=== PATIENT | female | born 1990 | race Caucasian/White ===

== ENCOUNTER 2023-12-16 09:27 | Outpatient (AMB) | payer MEDICARE, MEDICAID, SELFPAY ==
--- NOTE | 2023-12-16 09:28 | A.OFFVIS_ITS ---
Intake Vital Signs 12/16/23 09:34 Height 5 ft 2 in Weight 218 lb 4.122 oz BMI 39.9 BP 127/82 Blood Pressure Location Lt brachial Position Sitting Pulse 100 Intake Visit Reasons: GERD, DIARRHEA, EXTREME NAUSEA Intake Note: Alejandrina presents in the office as a new patient for GERD, Diarrhea, And Nausea. CC: She states that she had SIBO and since the AX that she states that she has gotten better. She now has constipation because she is on the fentinol is adding to that but her mast cell dr wanted a GI specialist on the team. [facility]. Her PCP is Zena Boyd. Truck Car And Bus Cleaner Required: Yes Truck Car And Bus Cleaner Name: [id number] Allergies almond Allergy (Mild, Verified 12/16/23 09:36) Unknown avocado Allergy (Mild, Verified 12/16/23 09:36) Unknown peanut Allergy (Mild, Verified 12/16/23 09:36) Unknown tomato Allergy (Mild, Verified 12/16/23 09:36) Unknown avoid: potato, corn, pepper, beans Allergy (Mild, Uncoded 12/16/23 09:36) Unknown cassava Allergy (Mild, Uncoded 12/16/23 09:36) Unknown zucchini Allergy (Mild, Uncoded 12/16/23 09:36) Unknown HPI GERD, DIARRHEA, EXTREME NAUSEA HPI Details 33 yr old f here for assessment, she has chronic constipation, attributed to fentanyl patch--on for 5 months, she has tried OTC meds with variable results she has chrnic nausea, on zofran for years denies dysphagia she can have hard time speaking --dysphonia she denies heartburn and reflux she is on claritin and cromolyn right now, had skin test but developed anaphylaxis last EGD and colo [address] [facility] --normal per her report said she has been tested for POTS in past and told neg PMH: DEISY, hashimotos, Dileep Danlos, asthma, chronic pain, migraines, PSH: double mastectomy (BRCA pos), neck fusion, SH: non smoker, no alcohol, no THC use, disabled due to hearing FH: Fh of breast cancer, second cousin CRC, mum with colon polyps Constitutional : No Weight loss, No Fever, No Chills ENT/Mouth : No sore throat, No Rhinorrhea Eyes: No Swelling, No Redness Cardiovascular : No Chest Pain, No SOB, No Edema Respiratory : No Cough, No Sputum, No Wheezing Gastrointestinal : see HPI Genitourinary : NO Dysuria, No Urinary Frequency, No Hematuria, No Urgency Musculoskeletal : No joint pain, No Myalgias, No Joint Swelling Skin : No Skin Lesions, No rash Neuro : No Weakness, No Numbness, No Dizziness, No Headache Psych : No Anxiety/Panic, No Depression Heme/Lymph: No Bruising, No Lymphadenopathy Endocrine : No Polyuria, No Polydipsia All other systems reviewed and are negative. EXAM: GENERAL: The patient is well developed and nontoxic. VITAL SIGNS:see workflow HEENT: Nonicteric sclerae, PERRLA, EOMI. Oropharynx clear. Moist mucous membranes. Conjunctivae appear well perfused. No thyroid mass. CHEST: Chest wall is nontender. HEART: Regular rate and rhythm without murmurs. LUNGS: Clear to auscultation bilaterally. ABDOMEN: Soft, positive bowel sounds, nontender, no organomegaly.no flank tenderness GENITAL:not done RECTAL: not done SKIN: No rash, no excessive bruising, petechiae, or purpura. NEUROLOGIC: Cranial nerves II-XII intact without motor/sensory deficit except deaf A/P: 1/ DEISY, chronic nausea could be 2/2 jimmy roparesis or opiate use, dysmotility, mast cell d/o less likely mastocytosis Plan: 1/ EGD, colo with bx for mast cells, als o will need pre op anesthesia and may need benadryl etc before hand--she has a lot of other apptms coming up and wants to wait to schedule this, will send suprep 2/ trial of movantik and see if helps [facility] Surgical History (Updated 12/16/23 @ 09:43 by ANAT Swan) Hx of neck surgery Hx of mastectomy Hx of tonsillectomy Hx of colonoscopy History of esophagogastroduodenoscopy (EGD) Family History (Updated 12/16/23 @ 09:44 by ANAT Swan) Family/Other Colon cancer Physical Exam Vital Signs: Last Vital Signs Pulse 100 12/16/23 09:34 BP 127/82 12/16/23 09:34 BMI result Body Mass Index 39.9 Assessment & Plan Assessment & Plan (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 - Mast cell activation, unspecified Plan: A/P: 1/ DEISY, chronic nausea could be 2/2 gastroparesis or opiate use, dysmotility, mast cell d/o less likely mastocytosis Plan: 1/ EGD, colo with bx for mast cells, also will need pre op anesthesia and may need benadryl etc before hand 2/ trial of movantik and see if helps (2) BRCA gene mutation positive: Code(s): Z15.01 - Genetic susceptibility to malignant neoplasm of breast; Z15.09 - Genetic susceptibility to other malignant neoplasm Plan: A/P: 1/ DEISY, chronic nausea could be 2/2 gastroparesis or opiate use, dysmotility, mast cell d/o less likely mastocytosis Plan: 1/ EGD, colo with bx for mast cells, also will need pre op anesthesia and may need benadryl etc before hand 2/ trial of movantik and see if helps Medications: New sodium,potassium,mag sulfates 17.5-3.13-1.6 gram (Suprep Bowel Prep Kit) DILUTE; drink 1/2 at 6-8 pm and half at 11 PM- 1AM 354 mL 0RF naloxegol (Movantik) must be taken on empty stomach; no food 1 hr after or 2-3 hrs before dose 12.5 mg PO QAM 90 tabs 0RF Coding Level of Care Code New Pt Level 4 (51727) Diagnoses Mast cell activation syndrome D89.40 BRCA gene mutation positive Z15.; Z.
[2023-12-16 09:34] VITALS: BP 127/82; PULSE 100; BMI 39.9
== END 2023-12-16 10:59 | disposition home or self-care (01) ==
PROVIDERS: PCP Family Medicine; Visit Provider Internal Medicine Gastroenterology
DX: D89.40 Mast cell activation, unspecified (principal); Z15.01 Genetic susceptibility to malignant neoplasm of breast; Z15.09 Genetic susceptibility to other malignant neoplasm
CPT/HCPCS: 99204

== ENCOUNTER → 2023-12-16 09:27 | Outpatient (BNVA) | payer MEDICARE, MEDICAID, SELFPAY | PROVIDERS: PCP Nurse Practitioner Family; Visit Provider Internal Medicine Gastroenterology | DX: D89.40 Mast cell activation, unspecified (principal); Z15.01 Genetic susceptibility to malignant neoplasm of breast; Z15.09 Genetic susceptibility to other malignant neoplasm | CPT/HCPCS: 99202 ==

== ENCOUNTER 2024-08-10 11:05 | Outpatient (REF) | payer MEDICARE, MEDICAID, SELFPAY ==
--- NOTE | ~2024-08-10 | XR_ITS ---
EXAMINATION: XR ABDOMEN KUB CLINICAL INDICATION: Constipation. COMPARISON: None available. TECHNIQUE: 2 views of the abdomen. FINDINGS: The bowel gas pattern is normal with no evidence of ileus or obstruction. Moderate stool burden is seen throughout the colon and in the rectum. No unusual soft tissue calcifications are noted. Regional osseous structures are intact. XR/XR KUB IMPRESSION: Moderate stool burden. Electronically signed by: Pravin Deutsch MD 08/10/2024 03:15 PM EDT
[2024-08-10 12:44] LABS: MANUAL DIFF FLAG NO
[2024-08-10 12:48] LABS: Basophils Absolute Auto 0.1 X10*3/uL (0.0-0.2); Basophils Percent Auto 0.6 % (0-2); Eosinophils Absolute Auto 0.1 X10*3/uL (0.0-0.4); Eosinophils Percent Auto 0.4 % (0-4); Hematocrit 44.3 % (37.0-47.0); Hemoglobin 15.3 g/dl (12.0-16.0); Imm Gran Abs Auto 0.16 X10*3/uL (0.00-0.03); Lymphocytes Absolute Auto 2.6 X10*3/uL (1.2-4.9); Lymphocytes Percent Auto 16.4 % (20-40); Mean Corpuscular HGB Conc 34.5 g/dl (31.0-35.0); Mean Corpuscular Hemoglobin 29.9 pg (27.0-33.0); Mean Corpuscular Volume 86.5 fL (80.0-98.0); Mean Platelet Volume 10.3 fL (9.4-12.3); Monocytes Absolute Auto 1.2 X10*3/uL (0.1-1.2); Monocytes Percent Auto 7.7 % (2-11); Neutrophils Absolute Auto 11.7 x10*3/uL (2.0-8.3); Neutrophils Percent Auto 73.9 % (45-73); Platelet Count 270 X10*3/uL (160-400); Red Blood Count 5.12 X10*6/uL (4.20-5.50); Red Cell Distribution Width 13.3 % (11.0-16.0); White Blood Count 15.9 X10*3/uL (4.8-10.8)
[2024-08-10 13:12] LABS: Alanine Aminotransferase 15 U/L (0-31); Albumin Level 4.2 g/dL (3.5-5.0); Alkaline Phosphatase 83 U/L (39-117); Anion Gap 12 (12-20); Aspartate Amino Transferase 9 U/L (5-31); Bilirubin Total 0.3 mg/dL (0.0-1.0); Blood Urea Nitrogen 8 mg/dL (9-16); C Reactive Protein 0.16 mg/dL (< or = 0.50); Calcium 9.5 mg/dL (8.4-10.2); Carbon Dioxide 22 mmol/L (22-29); Chloride 110 mmol/L (96-108); Estimated Glomerular Filt Rate > 60; Glucose Random 86 mg/dL (60-115); Magnesium 2.1 mg/dL (1.6-2.6); Potassium 3.5 mmol/L (3.3-5.1); Sodium 140 mmol/L (135-145); Total Protein 7.4 g/dL (6.5-8.0)
[2024-08-10 13:26] LABS: Ferritin 70 ng/mL (10-122); Vitamin D 25-OH Total 24.4 ng/mL (>30)
[2024-08-11 10:44] LABS: IgA 281 mg/dL (47-310); IgG 1148 mg/dL (600-1640); IgM 115 mg/dL (50-300)
[2024-08-11 13:53] LABS: Immunoglobulin E 24 kU/L (<OR=114)
[2024-08-13 05:45] LABS: Zinc 85 mcg/dL (60-130)
[2024-08-13 22:38] LABS: Aldolase 5.4 U/L (<=8.1); Vitamin A 107 mcg/dL (38-98)
[2024-08-14 21:33] LABS: Vitamin K1 765 pg/mL (130-1500)
[2024-08-14 21:47] LABS: Alpha-Tocopherol 8.5 mg/L (5.7-19.9); Beta-Gamma Tocopherol <1.0 mg/L (<=4.3)
[2024-08-15 16:23] LABS: Vitamin C 0.5 mg/dL (0.3-2.7)
[2024-08-17 08:13] LABS: Vitamin B5 (Pantothenic Acid) <=40 ng/mL (<275)
[2024-08-17 14:02] LABS: Vitamin B1 15 nmol/L (8-30)
[2024-08-23 15:08] LABS: Nicotinamide 26 ng/mL (see note); Vit B3 - Nicotinic Acid <20 ng/mL (see note)
== END 2024-08-10 11:06 | disposition home or self-care (01) ==
LOC: HO.XRAY 11:05
PROVIDERS: PCP Family Medicine; Visit Provider Internal Medicine Gastroenterology
DX: D89.40 Mast cell activation, unspecified (principal); K59.00 Constipation, unspecified; E46 Unspecified protein-calorie malnutrition; K75.81 Nonalcoholic steatohepatitis (NASH)
CPT/HCPCS: 36415; 74018; 80053; 82085; 82180; 82306; 82550; 82728; 82784; 82785; 83735; 84207; 84425; 84446; 84590; 84591; 84597; 84630; 85025; 86140; 99212

== ENCOUNTER 2024-08-10 11:05 | Outpatient (AMB) | payer MEDICARE, MEDICAID, SELFPAY ==
--- NOTE | 2024-08-10 11:11 | MHC.OFFVIS ---
Vital Signs 08/10/24 11:13 Height 5 ft 2 in Weight 180 lb 12.465 oz BMI 33.1 BP 129/86 Blood Pressure Location Lt brachial Position Sitting Pulse 90 Intake Visit Reasons: 8 month follow up Intake Note: Alejandrina presents in the office as a 8 month follow up. CC: been having abdominal cramping and diarrhea- states PCP put her on immodium and thinks it may have IBS. Seems to help a little with the cramping. 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: No Allergies almond Allergy (Mild, Verified 08/10/24 11:13) Unknown avocado Allergy (Mild, Verified 08/10/24 11:13) Unknown peanut Allergy (Mild, Verified 08/10/24 11:13) Unknown tomato Allergy (Mild, Verified 08/10/24 11:13) Unknown avoid: potato, corn, pepper, beans Allergy (Mild, Uncoded 08/10/24 11:13) Unknown cassava Allergy (Mild, Uncoded 08/10/24 11:13) Unknown zucchini Allergy (Mild, Uncoded 08/10/24 11:13) Unknown HPI HPI 8 month follow up: Details: 34 yr old f here for f/u RECAP: she has chronic constipation, attributed to fentanyl patch--on for 5 months, she has tried OTC meds with variable results she has chrnic nausea, on zofran for years denies dysphagia she can have hard time speaking --dysphonia she denies heartburn and reflux she is on claritin and cromolyn right now, had skin test but developed anaphylaxis last EGD and colo 2020 done at [facility] --normal per her report said she has been tested for POTS in past and told neg INTERIM: SHe never tried movantik she was changed to butrans and feels this has helped she still has mucous, incomplete evacuation and cramping -taking imodium has chronic musc aches and pains nausea ongoing she had non contrast CT at [facility]- no acute findings EXAM: GENERAL: The patient is well developed and nontoxic. VITAL SIGNS:see workflow HEENT: Nonicteric sclerae, PERRLA, EOMI. Oropharynx clear. Moist mucous membranes. Conjunctivae appear well perfused. No thyroid mass. CHEST: Chest wall is nontender. HEART: Regular rate and rhythm without murmurs. LUNGS: Clear to auscultation bilaterally. ABDOMEN: Soft, positive bowel sounds, gen tender, no organomegaly.no flank tenderness SKIN: No rash, no excessive bruising, petechiae, or purpura. NEUROLOGIC: Cranial nerves II-XII intact without motor/sensory deficit except deaf A/P: 1/ DEISY, chronic nausea and diarrhea could be 2/2 gastroparesis or opiate use, dysmotility, mast cell d/o less likely mastocytosis, IBD or other enteropathy - Plan: 1/ EGD, colo was discussed but she wants to hold on this try non invasive testing first-- ordered labs and stool tests as below, KUB 2/ trial of movantik if fecal loading on KUB 3/ ?capsule endo for further w/u PFSH Surgical History (Updated 12/16/23 @ 09:43 by ANAT Swan) Hx of neck surgery Hx of mastectomy Hx of tonsillectomy Hx of colonoscopy History of esophagogastroduodenoscopy (EGD) Family History (Updated 12/16/23 @ 09:44 by ANAT Swan) Family/Other Colon cancer Physical Exam Vital Signs: Last Vital Signs Pulse 90 08/10/24 11:13 BP 129/86 08/10/24 11:13 BMI result Body Mass Index 33.1 Assessment & Plan Assessment & Plan (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 - Mast cell activation, unspecified Category: Medical (2) Constipation: Code(s): K59.00 - Constipation, unspecified Category: Medical (3) Malnutrition: Code(s): E46 - Unspecified protein-calorie malnutrition Category: Medical Plan see above Orders: Orders Fecal Fat Qualitative Today D89.40 - Mast cell activation, unspecified, E46 - Unspecified protein-calorie malnutrition, K59.00 - Constipation, unspecified GI Panel Today D89.40 - Mast cell activation, unspecified, E46 - Unspecified protein-calorie malnutrition, K59.00 - Constipation, unspecified, R19.7 - Diarrhea, unspecified Vitamin B1 Today D89.40 - Mast cell activation, unspecified, E46 - Unspecified protein-calorie malnutrition, K59.00 - Constipation, unspecified Vitamin C Today D89.40 - Mast cell activation, unspecified, E46 - Unspecified protein-calorie malnutrition, K59.00 - Constipation, unspecified Vitamin E Today D89.40 - Mast cell activation, unspecified, E46 - Unspecified protein-calorie malnutrition, K59.00 - Constipation, unspecified Vitamin K1 Today D89.40 - Mast cell activation, unspecified, E46 - Unspecified protein-calorie malnutrition, K59.00 - Constipation, unspecified H pylori Ag Stool Today D89.40 - Mast cell activation, unspecified, E46 - Unspecified protein-calorie malnutrition, K59.00 - Constipation, unspecified Immunoglobulins,IgG IgA IgM Today D89.40 - Mast cell activation, unspecified, E46 - Unspecified protein-calorie malnutrition, K59.00 - Constipation, unspecified XR KUB Today D89.40 - Mast cell activation, unspecified, K59.00 - Constipation, unspecified Pancreatic Elastase-1 Today D89.40 - Mast cell activation, unspecified, E46 - Unspecified protein-calorie malnutrition, K59.00 - Constipation, unspecified Lactoferrin, Fecal, Quant. Today D89.40 - Mast cell activation, unspecified, E46 - Unspecified protein-calorie malnutrition, K51.50 - Left sided colitis without complications, K59.00 - Constipation, unspecified CDiff Gene PCR Today D89.40 - Mast cell activation, unspecified, E46 - Unspecified protein-calorie malnutrition, K59.00 - Constipation, unspecified, R19.7 - Diarrhea, unspecified Vitamin A Today D89.40 - Mast cell activation, unspecified, E46 - Unspecified protein-calorie malnutrition, K59.00 - Constipation, unspecified Vitamin B3 (Niacin) Today D89.40 - Mast cell activation, unspecified, E46 - Unspecified protein-calorie malnutrition, K59.00 - Constipation, unspecified Vitamin B5 (Pantothenic Acid) Today D89.40 - Mast cell activation, unspecified, E46 - Unspecified protein-calorie malnutrition, K59.00 - Constipation, unspecified Vitamin B6 Today D89.40 - Mast cell activation, unspecified, E46 - Unspecified protein-calorie malnutrition, K59.00 - Constipation, unspecified Vitamin D 25-OH Total Today D89.40 - Mast cell activation, unspecified, E46 - Unspecified protein-calorie malnutrition, K59.00 - Constipation, unspecified Zinc Today D89.40 - Mast cell activation, unspecified, E46 - Unspecified protein-calorie malnutrition, K59.00 - Constipation, unspecified Magnesium Today D89.40 - Mast cell activation, unspecified, E46 - Unspecified protein-calorie malnutrition, K59.00 - Constipation, unspecified Ferritin Today D89.40 - Mast cell activation, unspecified, E46 - Unspecified protein-calorie malnutrition, K59.00 - Constipation, unspecified Complete Blood Count Auto Diff Today D89.40 - Mast cell activation, unspecified, E46 - Unspecified protein-calorie malnutrition, K59.00 - Constipation, unspecified Comprehensive Met. Panel Today D89.40 - Mast cell activation, unspecified, E46 - Unspecified protein-calorie malnutrition, K59.00 - Constipation, unspecified, K75.81 - Nonalcoholic steatohepatitis (BROWN) Creatine Kinase Total Today D89.40 - Mast cell activation, unspecified, E46 - Unspecified protein-calorie malnutrition, K59.00 - Constipation, unspecified C Reactive Protein Today D89.40 - Mast cell activation, unspecified, E46 - Unspecified protein-calorie malnutrition, K59.00 - Constipation, unspecified Aldolase Today D89.40 - Mast cell activation, unspecified, E46 - Unspecified protein-calorie malnutrition, K59.00 - Constipation, unspecified Immunoglobulin E Today D89.40 - Mast cell activation, unspecified, E46 - Unspecified protein-calorie malnutrition, K59.00 - Constipation, unspecified Coding Level of Care Code Est Pt Level 4 (83859) Diagnoses Mast cell activation syndrome D89.40 Constipation K59.00 Malnutrition E46
[2024-08-10 11:13] VITALS: BP 129/86; PULSE 90; BMI 33.1
== END 2024-08-10 11:43 | disposition home or self-care (01) ==
PROVIDERS: PCP Family Medicine; Visit Provider Internal Medicine Gastroenterology
DX: D89.40 Mast cell activation, unspecified (principal); K59.00 Constipation, unspecified; E46 Unspecified protein-calorie malnutrition
CPT/HCPCS: 99214

== ENCOUNTER 2024-10-05 11:45 | Outpatient (AMB) | payer MEDICARE, MEDICAID, SELFPAY ==
--- NOTE | 2024-10-05 11:52 | A.OFFVIS_ITS ---
Vital Signs 10/05/24 11:56 Height 5 ft 2 in Weight 180 lb BMI 32.9 BP 89/51 L Blood Pressure Location Lt brachial Position Sitting Pulse 79 Intake Visit Reasons: 2 month follow up Intake Note: Patient 2 month follow up for Constipation and lab results. Patient cc: nauseas, abdominal pain, and some constipation but every symptoms is much better than last visit with you Dr. Lee. Patient Blood pressure is low and patient is a little dizzy. Ophthalmic Aide Required: No Accompanied by: Self / Same As Patient Allergies almond Allergy (Mild, Verified 10/05/24 11:51) Unknown avocado Allergy (Mild, Verified 10/05/24 11:51) Unknown peanut Allergy (Mild, Verified 10/05/24 11:51) Unknown tomato Allergy (Mild, Verified 10/05/24 11:51) Unknown avoid: potato, corn, pepper, beans Allergy (Mild, Uncoded 08/10/24 11:13) Unknown cassava Allergy (Mild, Uncoded 08/10/24 11:13) Unknown zucchini Allergy (Mild, Uncoded 08/10/24 11:13) Unknown HPI HPI 2 month follow up: Details: : 34 yr old f here for f/u RECAP: she has chronic constipation, attributed to fentanyl patch--on for 5 months, she has tried OTC meds with variable results she has chrnic nausea, on zofran for years denies dysphagia she can have hard time speaking --dysphonia she denies heartburn and reflux she is on claritin and cromolyn right now, had skin test but developed anaphylaxis last EGD and colo 2020 done at [facility] --normal per her report said she has been tested for POTS in past and told neg INTERIM: she tried relistor and she feesl it has been a benefit when has bowel motion relieves pain she cont with pain patch awaiting MRI brain with neurologist --migraines, has chronic nausea still wants to hold on egd,and colon labs with mild raised WCC< but CRP nml, she says this is chronic EXAM: GENERAL: The patient is well developed and nontoxic. VITAL SIGNS:see workflow HEENT: Nonicteric sclerae, PERRLA, EOMI. Oropharynx clear. Moist mucous membranes. Conjunctivae appear well perfused. No thyroid mass. CHEST: Chest wall is nontender. HEART: Regular rate and rhythm without murmurs. LUNGS: Clear to auscultation bilaterally. ABDOMEN: Soft, positive bowel sounds, gen tender, no organomegaly.no flank tenderness SKIN: No rash, no excessive bruising, petechiae, or purpura. NEUROLOGIC: Cranial nerves II-XII intact without motor/sensory deficit except deaf A/P: 1/ DEISY, chronic nausea and diarrhea could be 2/2 gastroparesis or opiate use, dysmotility, mast cell d/o less likely mastocytosis, IBD or other enteropathy - she feels benefir with relistor but only taking one a day to avoid withdrawal sx Plan: 1/ EGD, colo was discussed but she wants to hold on this 2/ cont with relistor 3/ await neuro input [facility] Surgical History Hx of neck surgery Hx of mastectomy Hx of tonsillectomy Hx of colonoscopy History of esophagogastroduodenoscopy (EGD) Family History Family/Other Colon cancer Physical Exam Vital Signs: Last Vital Signs Pulse 79 10/05/24 11:56 BP 89/51 L 10/05/24 11:56 BMI result Body Mass Index 32.9 Assessment & Plan Assessment & Plan (1) Malnutrition: Code(s): E46 - Unspecified protein-calorie malnutrition Category: Medical Plan: see above Coding Level of Care Code Est Pt Level 3 (98432) Diagnoses Malnutrition E46
[2024-10-05 11:56] VITALS: BP 89/51; PULSE 79; BMI 32.9
== END 2024-10-05 12:50 | disposition home or self-care (01) ==
PROVIDERS: PCP Family Medicine; Visit Provider Internal Medicine Gastroenterology
DX: E46 Unspecified protein-calorie malnutrition (principal)
CPT/HCPCS: 99213

== ENCOUNTER → 2024-10-05 11:45 | Outpatient (BNVA) | payer MEDICARE, MEDICAID, SELFPAY | PROVIDERS: PCP Family Medicine; Visit Provider Internal Medicine Gastroenterology | DX: E46 Unspecified protein-calorie malnutrition (principal); R11.0 Nausea; R10.9 Unspecified abdominal pain; K59.00 Constipation, unspecified | CPT/HCPCS: 99212 ==